=== PATIENT | female | born 1980 | race Caucasian/White ===

== ENCOUNTER 2023-10-30 17:46 | Emergency (ER) | payer MEDICAID ==
[~2023-10-30] VITALS: Ht 152.4 cm; Wt 70.3 kg
[~2023-10-30 17:46] MED LIST: ANAPROX275 MG PO; CLINDAMYCIN HC300 MG PO; COLACE100 MG PO; DONNATAL1 TAB PO; HYDROCODONE BIT1 T11 PO; IBU800 M1 PO; IRON325 M1 PO; LOMOTIL 0.025 M1 TAB PO; MACROBID100 M1 PO; METFORMIN500 MG PO; NKHM; PEPCID20 MG PO; PERCOCET 325 MG1 TA5 PO; PRENATAL 1 PLUS1 TA2 PO; PROTONIX40 MG PO; Phenergan25 MG PO; TRAMADOL HCL50 MG PO
[2023-10-30] MEDS ORDERED: VENT7GM INH (19:17)
[2023-10-30 19:23] LABS: BILIRUBIN Negative (Negative); BLOOD 1+ (Negative); CLARITY Clear (Clear); COLOR Yellow (Yellow); GLUCOSE Negative (Negative); KETONE Negative (Negative); LEUKO ESTERASE Negative (Negative); NITRITE Negative (Negative); PH 6.5 (4.5-8.0)
[2023-10-30 19:34] LABS: BACTERIA 1+
== END 2023-10-30 20:13 | disposition left against medical advice (07) ==
LOC: ED 17:46
PROVIDERS: Student in an Organized Health Care Education/Training Program
DX: Z32.02 Encounter for pregnancy test, result negative (principal); R11.0 Nausea; J45.909 Unspecified asthma, uncomplicated; G43.909 Migraine, unspecified, not intractable, without status migrainosus; Z88.8 Allergy status to other drugs, medicaments and biological substances; Z88.0 Allergy status to penicillin; Z98.890 Other specified postprocedural states; Z90.49 Acquired absence of other specified parts of digestive tract; Z79.899 Other long term (current) drug therapy